=== PATIENT | male | born 1955 | race Caucasian/White ===

== ENCOUNTER 2018-12-28 02:43 | Emergency (ER) | payer BC ==
[2018-12-28] MEDS ORDERED: Ondansetron 4 MG/2 ML SDV IVPUSH ONE (02:51)
[2018-12-28] MEDS ORDERED: HYDROmorphone 1 MG/ML Syringe IVPUSH ONE (02:51)
--- NOTE | 2018-12-28 02:55 | EDM.PDOC ---
ED HPI GENERAL MEDICAL PROBLEM - General Chief Complaint: Gastrointestinal Problem Stated Complaint: [facility] Time Seen by Provider: 12/28/18 02:50 Source of Information: Reports: Patient, EMS History Limitations: Reports: No Limitations - History of Present Illness INITIAL COMMENTS - FREE TEXT/NARRATIVE: 63-year-old male presents to the ED per [facility]. Patient states he was fine yesterday until about 2100 hrs. when he started to develop lower abdominal cramping pain and then diarrhea. States initially dye was brown and watery and then turned to yellow and watery and is now almost clear and watery. He's gone about 22 times almost every 15-20 minutes since onset of the diarrhea. He's been lying on the bathroom floor because he can't straight far. He had a large emesis of bile just before coming into the ED. Vomited only one time. No fever but has had some chills. States he feels lightheaded and weak he can't stand up. Also associated with severe cramping in his lower extremities compatible with dehydration or hypokalemia or both. Patient takes medicine circling around heart attack in 2010. He has one stent placed 08/11/11. He did have an MRI at that time. Patient can't think of anything that he may have eaten out of the ordinary over the last 36 hours that would bear out a food borne illness. He hasn't taken any antibiotics at all last 6 weeks. Associated mild diffuse lower abdominal cramping pain. No blood per rectum or in the emesis. Onset: Sudden Onset Date: 12/27/18 Onset Time: 21:00 Duration: Hour(s): Location: Reports: Abdomen Quality: Reports: Other Severity: Moderate (Mild intermittent lower abdominal cramping pain) Improves with: Reports: None Worsens with: Reports: None Context: Reports: Other. Denies: Activity, Exercise, Lifting, Sick Contact, Trauma Associated Symptoms: Reports: Loss of Appetite, Malaise, Nausea/Vomiting (1 large bilious emesis prior to coming into the ED), Shortness of Breath, Other. Denies: Confusion (Spontaneous onset of nausea vomiting and severe diarrhea.), Chest Pain, Cough, cough w sputum, Diaphoresis, Fever/Chills, Headaches, Rash, Seizure, Syncope Treatments [employer]PER[employer]OR: Reports: IV/IO, Other (see below) (None.) - Related Data Allergies Allergy/AdvReac Type Severity Reaction Status Date / Time No Known Allergies Allergy Verified 12/28/18 02:44 Home Meds: Home Meds Ciprofloxacin HCl [Cipro] 500 mg PO BID #12 tablet 12/28/18 [Rx] Dicyclomine [Bentyl] 20 mg PO Q6H PRN #8 tablet 12/28/18 [Rx] Ondansetron [Zofran] 4 mg BUCCAL Q6H PRN #5 tab 12/28/18 [Rx] Past Medical History Cardiovascular History: Reports: High Cholesterol, [place] (Had a heart attack and had one stent placed at that time. Remains on Plavix and metoprolol and Lipitor) Genitourinary History: Reports: BPH Musculoskeletal History: Reports: Osteoarthritis (Hands and low back and neck at times) Social & Family History - Living Situation & Occupation Occupation: Employed ED ROS GENERAL - Review of Systems Review Of Systems: See Below Constitutional: Reports: Chills, Malaise, Weakness, Fatigue, Decreased Appetite. Denies: Fever HEENT: Reports: Glasses Respiratory: Reports: No Symptoms (Only for reading) Cardiovascular: Denies: Chest Pain, Blood Pressure Problem, Claudication, Dyspnea on Exertion, Edema, Lightheadedness, Orthopnea, Palpitations Endocrine: Reports: Fatigue GI/Abdominal: Reports: Abdominal Pain (Intermittent lower abdominal cramping pain associated with current illness), Diarrhea (Severe diarrhea 22 times a week since 2100 hrs. last night high-volume fluid losses), Nausea, Vomiting ( Vomited once bilious material prior to coming to the ED.). Denies: Distension, Flatus, Hematemesis, Hematochezia, Melena, Other : Reports: Frequency, Other (Nocturia usually 1) Musculoskeletal: Reports: Back Pain, Joint Pain (Knees hips neck at times) Skin: Reports: Other (Vitiligo anterior chest both dorsal hands) Neurological: Reports: Dizziness (Got so dizzy and lightheaded he could not stand up), Numbness, Tingling, Difficulty Walking, Weakness (Unable to walk due to weakness this is why he had to summon the ambulance.). Denies: Confusion, Headache ( after vomiting.), Pre-Existing Deficit (Somewhat in his hands.), Seizure Psychiatric: Reports: No Symptoms Hematologic/Lymphatic: Reports: No Symptoms Immunologic: Reports: No Symptoms ED EXAM, GI/ABD - Physical Exam Exam: See Below Exam Limited By: No Limitations General Appearance: Alert, WD/WN, Mild Distress, Other (Mildly pallid and he can tell that he was diaphoretic and sweating) Eyes: Bilateral: Normal Appearance Throat/Mouth: Other (Tongue is mildly dry and coated) Head: Atraumatic, Normocephalic Neck: Normal Inspection, Supple, Non-Tender, Full Range of Motion. No: Carotid Bruit, Lymphadenopathy (L), Lymphadenopathy (R) Respiratory/Chest: No Respiratory Distress, Lungs Clear, Normal Breath Sounds, Chest Non-Tender Cardiovascular: Normal Peripheral Pulses, Regular Rate, Rhythm, No Edema, No Gallop, No Murmur, No Rub GI/Abdominal Exam: Soft, No Organomegaly, No Distention, Tender (I'll tenderness of the abdominal wall musculature primarily in the epigastrium.), Abnormal Bowel Sounds. No: Guarding, Rigid, Rebound (Male) Exam: No Hernia Back Exam: Normal Inspection, Full Range of Motion. No: CVA Tenderness (L), CVA Tenderness (R) Extremities: Normal Inspection, Normal Range of Motion, Non-Tender, No Pedal Edema Neurological: Alert, Oriented, CN II-XII Intact, Normal Cognition Psychiatric: Normal Affect, Normal Mood Skin Exam: Warm, Dry, Intact, No Rash, Pallor (Slight pallor.) Course - Vital Signs Last Recorded V/S: Last Vital Signs Temp 35.9 C 12/28/18 02:44 Pulse 72 12/28/18 02:44 Resp 15 12/28/18 02:44 BP 146/95 H 12/28/18 02:44 Pulse Ox 98 12/28/18 02:44 - Orders/Labs/Meds Labs: Laboratory Tests 12/28/18 12/28/18 12/28/18 Range/Units 03:00 03:06 03:06 WBC 7.43 (4.23-9.07) K/mm3 RBC 4.97 (4.63-6.08) M/mm3 Hgb 14.5 (13.7-17.5) gm/L Hct 43.2 (40.1-51.0) % MCV 86.9 (79.0-92.2) fl MCH 29.2 (25.7-32.2) pg MCHC 33.6 (32.2-35.5) g/dl RDW Std Deviation 41.5 (35.1-43.9) fL Plt Count 217 (163-337) K/mm3 MPV 9.6 (9.4-12.3) fl Neutrophils % (Manual) 80 H (40-60) % Band Neutrophils % 0 (0-10) % Lymphocytes % (Manual) 13 L (20-40) % Atypical Lymphs % 0 % Monocytes % (Manual) 3 (2-10) % Eosinophils % (Manual) 4 (0.8-7.0) % Basophils % (Manual) 0 L (0.2-1.2) Platelet Estimate Adequate Plt Morphology Comment Normal RBC Morph Comment Normal Sodium 138 (136-145) mEq/L Potassium 3.5 (3.5-5.1) mEq/L Chloride 104 (98-107) mEq/L Carbon Dioxide 22 (21-32) mEq/L Anion Gap 15.5 H (5-15) BUN 12 (7-18) mg/dL Creatinine 1.1 (0.7-1.3) mg/dL Est Cr Clr Drug Dosing 70.05 mL/min Estimated GFR (MDRD) > 60 (>60) mL/min BUN/Creatinine Ratio 10.9 L (14-18) Glucose 116 H (80-115) mg/dL Calcium 8.6 (8.5-10.1) mg/dL Total Bilirubin 1.0 (0.2-1.0) mg/dL AST 19 (15-37) U/L ALT 38 (16-63) U/L Alkaline Phosphatase 98 (46-116) U/L C-Reactive Protein 0.8 (<1.0) mg/dL Total Protein 6.9 (6.4-8.2) g/dl Albumin 3.8 (3.4-5.0) g/dl Globulin 3.1 gm/dL Albumin/Globulin Ratio 1.2 (1-2) C.difficile [id number] Presumptive negative C. difficile Tox (PCR) Negative Meds: Medications Discontinued Medications Generic Name Dose Route Start Last Admin Trade Name Freq PRN Reason Stop Dose Admin Hydromorphone HCl 0.5 mg 12/28/18 02:51 12/28/18 03:01 Dilaudid IVPUSH 12/28/18 02:52 0.5 mg ONETIME ONE Administration Dextrose/Lactated Ringer's 1,000 mls @ 999 mls/hr 12/28/18 03:00 12/28/18 02: 58 Dextrose 5%-Lactated Ringers IV 999 mls/hr ASDIRECTED RAUL Administration Dextrose/Lactated Ringer's 1,000 mls @ 500 mls/hr 12/28/18 04:00 12/28/18 05: 05 Dextrose 5%-Lactated Ringers IV 500 mls/hr ASDIRECTED RAUL Administration Levofloxacin/Dextrose 500 mg/ 100 mls @ 100 mls/hr 12/28/18 03:53 12/28/18 04 :05 Premix IV 12/28/18 04:52 100 mls/hr ONETIME ONE Administration Ondansetron HCl 4 mg 12/28/18 02:51 12/28/18 02:59 Zofran IVPUSH 12/28/18 02:52 4 mg ONETIME ONE Administration - Radiology Interpretation Free Text/Narrative:: 63-year-old male presents to the ED for evaluation of generalized weakness that is occurred since he developed sudden onset is that of severe watery diarrhea per Rosemary about 2100 hrs. last night. He states he's got about every 15-20 minutes and is counted more than 22 bowel movements since onset of illness. He had emesis of large amount of bilious material just prior to coming to the ED 1. No blood in the stool. He states is almost pure water suggesting a strong secretory diarrhea. There is no history of significant exposure to bad food. He did eat out yesterday with a daphnie melt after [employer]. He opened a can of tuna last night and admitted to decide which makes with salad dressing that was in the fridge. The history is suggestive of a food borne toxin or C. difficile. He has not taken any antibiotics for greater than 6 weeks. States she's get cramps so bad in his lower extremities that he could not walk or stand. Severity lightheaded and dizzy. Paramedics have started an IV of normal saline 500 mils at open. No medications have been administered by paramedics. Plan Zofran 4 mg IV. IV will be D5 Ringer's lactate at open. Routine labs to be collected and CRP and a stool for WBC and culture. Stool also be collected for C. difficile. - Re-Assessments/Exams Free Text/Narrative Re-Assessment/Exam: 12/28/18 03:47 Labs reveal a normal white count at 7.43. There is a left shift of 80% neutrophils and no band cells reported. Hemoglobin is 14.5 with hematocrit of 43.2. Platelet count 217,000. Sodium 138 with potassium of 3.5. Chloride 104 with a bicarbonate of 22. And a gap is slightly elevated at 15.5. Creatinine is 1.1. GFR is greater than 60. Glucose is 116. Calcium is 8.6. Total bilirubin is 1.0. AST is 19 with an ALT of 38. Alkaline phosphatase 98. C- reactive protein is 0.8. Stool specimen reports a few white blood cells noted in the stool. 12/28/18 03:54 patient is feeling better. No further cramps he's only had the one bowel movement since being in the department. C. difficile toxin has not yet been identified. She reports she's been having some intermittent loose diarrhea for the last several days which she admitted to tell me on initial interrogation. He states he did take an Imodium yesterday morning before going to work. Had no bowel movements until 2100 hrs. last night. 12/28/18 04:38 stool tested for C. difficile is presumptively negative. 12/28/18 06:00 Patient is feeling better . Will be treated conservatively with fluids and sent fome with Zofran 4mg s/l Q4-6hrs prn for nausea or vomiting relief. Clear fluid diet. Bentyl 20mg po Q6 Hr prn for relief of abdominal pain/ cramps. Cipro 500mg po BID for 6days due to suspect food borne illness. Follow up if not markedly improved in 36-48hrs time. Departure - Departure Time of Disposition: 06:00 Disposition: Home, Self-Care 01 Condition: Fair Clinical Impression: Gastroenteritis due to food toxin - Discharge Information *PRESCRIPTION DRUG MONITORING PROGRAM REVIEWED*: Not Applicable *COPY OF PRESCRIPTION DRUG MONITORING REPORT IN PATIENT ABBI: Not Applicable Prescriptions: Ciprofloxacin HCl [Cipro] 500 mg PO BID #12 tablet Dicyclomine [Bentyl] 20 mg PO Q6H PRN #8 tablet PRN Reason: Abdominal cramps/diarrhea Ondansetron [Zofran] 4 mg BUCCAL Q6H PRN #5 tab PRN Reason: nausea or vomiting Instructions: Viral Gastroenteritis, Adult, [id number] Referrals: PCP,None [Primary Care Provider] - Forms: ED Department Discharge Additional Instructions: Evaluation the emergency room this morning due to development of severe diarrhea and vomiting 1 starting last evening about 2100 hrs. Severe diarrhea ended up causing significant dehydration with associated muscle cramping in your lower extremities ,lightheadedness and difficulties trying to walk. The severity of the diarrhea with 22 bowel movements over a short period of time suggest strongly that there is a bacterial toxin from recently eaten food usually within 24 hours of onset of illness to cause such significant diarrhea. The stools tested in the ED revealed a few white blood cells suggesting bacterial illness. It was negative for Clostridium difficile and is in that causes severe diarrhea. Therefore appears that diarrhea is foodborne in origin likely a toxin in recently eaten food such as possibly the main days used to make her tuna salad sandwich last night. You were treated in the ED with a liter and a half of IV fluids and initial dose of IV antibiotic Levaquin 500 mg. Treatment at home is clear fluids water is fine. Suggest Powerade or Gatorade 5-6 ounces per hour as this is very similar to IV fluid replacement. They have other juices as well if so desired but no apple juice or grape juice until stools are formed backup. No dairy products again until the stools are formed backup. When hungry try soda crackers first. If tolerated may advance to jam on bread or toast. After this may advance to broth soup or chicken noodle/ turkey rice soup etc. May then advance diet as tolerated. Antibiotic Cipro is to be taken twice daily for the next 6 days to clear up bacterial-induced diarrhea. First tablet to be taken around noon hour today second one before bed. May use Zofran under the tongue every 4-6 hours if needed for relief of nausea or vomiting. Bentyl 20 mg by mouth every 6 hours if needed for relief of diarrhea or abdominal cramps. Expect marked improvement over the next 48 hours. Still having diarrhea after 48 hours you should be seen by her primary care physician or return to the ED.
[2018-12-28] MEDS ORDERED: Dextrose 5%-Lactated Ringers 1,000 ML IV SCH ×2 (03:00→04:00)
[2018-12-28] MEDS ORDERED: Levofloxacin/Dextrose 5%-Water 500 MG in Premix Bag 1 BAG IV ONE (03:53)
== END 2018-12-28 06:30 | disposition home or self-care (01) ==
LOC: JD.ED 02:43
DX: A05.9 Bacterial foodborne intoxication, unspecified (principal); I25.2 Old myocardial infarction
CPT/HCPCS: 36415; 80053; 85007; 85027; 86140; 87046; 87493; 89055; 96361; 96365; 96375; 99284; J1170; J1956; J2405; J7042

== ENCOUNTER 2019-11-25 21:26 | Emergency (ER) | payer BC, MEDICARE ==
[2019-11-25] MEDS ORDERED: HYDROmorphone 1 MG/ML Syringe IVPUSH ONE (22:51)
[2019-11-25] MEDS ORDERED: Ondansetron 4 MG/2 ML SDV IVPUSH ONE (22:51)
--- NOTE | 2019-11-25 22:57 | EDM.PDOC ---
ED HPI GENERAL MEDICAL PROBLEM - General Chief Complaint: Back Pain or Injury Stated Complaint: FALL LOWER BACK PAIN Time Seen by Provider: 11/25/19 22:33 Source of Information: Reports: Patient, Family (, son) History Limitations: Reports: No Limitations - History of Present Illness INITIAL COMMENTS - FREE TEXT/NARRATIVE: Mr. 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 He states that he was helped into his house where he essentially laid on the couch for the remainder of the afternoon. He states that he has pain in his lower left flank area, even if he remains still, although it is much worse if he walks. He states that he is otherwise uninjured. He iced his back and took 800 mg of ibuprofen around 18:00, but his pain has persisted, therefore he came to the ED for evaluation. The patient denies recent fever, chills, cough, chest pain, palpitations, nausea , vomiting, constipation, diarrhea, abdominal pain, urinary symptoms, recent weight gain or weight loss, recent bloody bowel movements or black bowel movements, recent joint aches, headaches, or rashes. The patient does not have a PCP. His Cardiology and level is Christina Simon NP, at [facility]. He received an influenza vaccine this season. 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: Other (see below) Other Treatments PACKAGING DESIGN ENGINEER: advil Left Lower Back Pain Score (Numeric/FACES): 9 - Related Data Allergies Allergy/AdvReac Type Severity Reaction Status Date / Time No Known Allergies Allergy Verified 12/28/18 02:44 Home Meds: Home Meds Aspirin [Halfprin] 81 mg PO DAILY 11/25/19 [History] Clopidogrel [Plavix] 75 mg PO DAILY 11/25/19 [History] Metoprolol Succinate 25 mg PO DAILY 11/25/19 [History] Ramipril [Altace] 2.5 mg PO DAILY 11/25/19 [History] atorvaSTATin Calcium [Lipitor] 40 mg PO DAILY 11/25/19 [History] Acetaminophen/oxyCODONE [Percocet 325-5 MG] 1 - 2 tab PO Q6H PRN #30 tab [Rx] Ondansetron [Zofran ODT] 1 tab PO Q8H PRN #15 tab.dis 11/26/19 [Rx] Past Medical History Cardiovascular History: Reports: CAD, High Cholesterol, GA (04/14/2011) Genitourinary History: Reports: BPH (untreated) Musculoskeletal History: Reports: Osteoarthritis Hematologic History: Reports: Blood Transfusion(s) Dermatologic History: Reports: Other (See Below) (Vitiligo) - Past Surgical History HEENT Surgical History: Reports: Tonsillectomy Cardiovascular Surgical History: Reports: Coronary Artery Stent (x 1, 04/14/2011) GI Surgical History: Reports: Colonoscopy (x 1) Social & Family History - Tobacco Use Smoking Status *Q: Never Smoker - Caffeine Use Caffeine Use: Reports: Soda - Alcohol Use Alcohol Use History: Yes Alcohol Use Frequency: Socially - Recreational Drug Use Recreational Drug Use: No - Living Situation & Occupation Living situation: Reports: , with Spouse Occupation: Employed ([employer]) ED ROS GENERAL - Review of Systems Review Of Systems: Comprehensive ROS is negative, except as noted in HPI. ED EXAM,LOWER BACK PAIN/INJURY - Physical Exam Exam: See Below Exam Limited By: No Limitations General Appearance: Alert, WD/WN, No Apparent Distress (appears uncomfortable, particularly when he moves) Eye Exam: Bilateral Eye: EOMI, Normal Inspection Ears: Normal External Exam, Hearing Grossly Normal Nose: Normal Inspection Throat/Mouth: Normal Inspection, Normal Lips, Normal Voice, No Airway Compromise Head: Atraumatic, Normocephalic Neck: Normal Inspection, Full Range of Motion Respiratory/Chest: No Respiratory Distress, Lungs Clear, Normal Breath Sounds, No Accessory Muscle Use Cardiovascular: Normal Peripheral Pulses, Regular Rate, Rhythm, No Edema, No Gallop, No JVD, No Murmur, No Rub GI/Abdominal: Normal Bowel Sounds, Soft, Non-Tender, No Organomegaly, No Distention, No Abnormal Bruit, No Mass (Male) Exam: Deferred Rectal (Males) Exam: Deferred Back Exam: Normal Inspection (No visible abnormality, including to the lower left flank - the area of concern - such as swelling, erythema, ecchymosis, or abrasion, however, there is reproducible tenderness to palpation of this area), Full Range of Motion. No: CVA Tenderness (L), CVA Tenderness (R), Vertebral Tenderness Extremities: Normal Inspection, Normal Range of Motion, No Pedal Edema, Normal Capillary Refill Neurological: Alert, Normal Dorsiflexion, Normal Plantar Flexion, No Motor/ Sensory Deficits, Oriented x 3 Psychiatric: Normal Affect Skin Exam: Warm, Dry, Intact, Normal Color, No Rash Course - Vital Signs Last Recorded V/S: Last Vital Signs Temp 36.5 C 11/25/19 22:00 Pulse 67 11/25/19 22:00 Resp 20 11/25/19 22:00 BP 118/77 11/25/19 22:00 Pulse Ox 96 11/25/19 22:00 - Orders/Labs/Meds Labs: Laboratory Tests 11/25/19 11/25/19 Range/Units 23:10 23:10 WBC 7.33 (4.23-9.07) K/mm3 RBC 4.92 (4.63-6.08) M/mm3 Hgb 14.6 (13.7-17.5) gm/dl Hct 43.1 (40.1-51.0) % MCV 87.6 (79.0-92.2) fl MCH 29.7 (25.7-32.2) pg MCHC 33.9 (32.2-35.5) g/dl RDW Std Deviation 42.2 (35.1-43.9) fL Plt Count 246 (163-337) K/mm3 MPV 9.3 L (9.4-12.3) fl Neut % (Auto) 69.0 H (34.0-67.9) % Lymph % (Auto) 17.2 L (21.8-53.1) % Mcdonald % (Auto) 12.0 (5.3-12.2) % Eos % (Auto) 1.4 (0.8-7.0) Baso % (Auto) 0.3 (0.1-1.2) % Neut # (Auto) 5.06 (1.78-5.38) K/mm3 Lymph # (Auto) 1.26 L (1.32-3.57) K/mm3 Mcdonald # (Auto) 0.88 H (0.30-0.82) K/mm3 Eos # (Auto) 0.10 (0.04-0.54) K/mm3 Baso # (Auto) 0.02 (0.01-0.08) K/mm3 Sodium 138 (136-145) mEq/L Potassium 4.2 (3.5-5.1) mEq/L Chloride 103 (98-107) mEq/L Carbon Dioxide 23 (21-32) mEq/L Anion Gap 16.2 H (5-15) BUN 17 (7-18) mg/dL Creatinine 1.1 (0.7-1.3) mg/dL Est Cr Clr Drug Dosing 70.05 mL/min Estimated GFR (MDRD) > 60 (>60) mL/min BUN/Creatinine Ratio 15.5 (14-18) Glucose 107 (80-115) mg/dL Calcium 8.9 (8.5-10.1) mg/dL Total Bilirubin 1.5 H (0.2-1.0) mg/dL AST 24 (15-37) U/L ALT 45 (16-63) U/L Alkaline Phosphatase 98 (46-116) U/L Total Protein 7.1 (6.4-8.2) g/dl Albumin 4.1 (3.4-5.0) g/dl Globulin 3.0 gm/dL Albumin/Globulin Ratio 1.4 (1-2) Meds: Medications Discontinued Medications Generic Name Dose Route Start Last Admin Trade Name Freq PRN Reason Stop Dose Admin Hydromorphone HCl 1 mg 11/25/19 22:51 11/25/19 23:11 Dilaudid IVPUSH 11/25/19 22:52 1 mg ONETIME ONE Administration Sodium Chloride 1,000 mls @ 150 mls/hr 11/25/19 23:00 11/25/19 23:11 Normal Saline IV 150 mls/hr ASDIRECTED RAUL Administration Iopamidol 100 ml 11/25/19 23:15 11/25/19 23:23 Isovue-300 (61%) IVPUSH 11/25/19 23:16 100 ml ONETIME ONE Administration Ondansetron HCl 4 mg 11/25/19 22:51 11/25/19 23:11 Zofran IVPUSH 11/25/19 22:52 4 mg ONETIME ONE Administration Sodium Chloride 10 ml 11/25/19 23:15 11/25/19 23:23 Saline Flush FLUSH 10 ml ONETIME PRN Administration KEEP VEIN OPEN - Re-Assessments/Exams Free Text/Narrative Re-Assessment/Exam: 11/25/19 22:52 As above, the patient reports lower left flank pain after falling about 4 feet off of a 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 There is no visible injury, such as an ecchymosis, but he has reproducible tenderness to palpation in the area that he has pain. Because the patient is on both aspirin and Plavix, I think it is important that we make sure that he has not suffered any significant injury not visible to the naked eye, therefore I recommended a CT scan of his abdomen and pelvis with IV contrast. The patient agreed. I also ordered a CBC and CMP. In the meantime, the patient will be given IV Dilaudid, IV Zofran, and IV fluid. 11/26/19 00:54 CT of the abdomen and pelvis with IV contrast as read by Luc as: 1. Fractures of the left 11th and 12th ribs and transverse processes of L1-L3. 2. Soft tissue swelling of the left flank. 3. No evidence of solid organ injury. The body of the report reads "Nondisplaced acute fractures of the posterior left 11th and 12th ribs and fractures of the left transverse processes of L1, L2 and L3. There is a compression deformity with anterior wedging of T12 which appears chronic." 11/26/19 01:03 Test results discussed with the patient and his son (his is no longer present). The patient does not require hospitalization. I will discharge him home with prescriptions for Percocet and Zofran. In addition, I would like him to take [id number] ibuprofen around the clock, and stay well-hydrated. Departure - Departure Time of Disposition: 01:06 Disposition: Home, Self-Care 01 Condition: Good Clinical Impression: Fall as cause of accidental injury on farm as place of occurrence, Multiple fractures of ribs, left side, initial encounter for closed fracture, Multiple transverse process fractures - Discharge Information *PRESCRIPTION DRUG MONITORING PROGRAM REVIEWED*: Not Applicable *COPY OF PRESCRIPTION DRUG MONITORING REPORT IN PATIENT ABBI: Not Applicable Prescriptions: Acetaminophen/oxyCODONE [Percocet 325-5 MG] 1 - 2 tab PO Q6H PRN #30 tab PRN Reason: Pain (Severe 7-10) Ondansetron [Zofran ODT] 1 tab PO Q8H PRN #15 tab.dis PRN Reason: Nausea/Vomiting Instructions: Transverse Process Fracture, Rib Fracture, [id number] Referrals: PCP,None [Primary Care Provider] - Christina Simon, [employer] [Ordering Only Provider] - Forms: ED Department Discharge Additional Instructions: You were seen in the emergency room for lower left back pain after falling off of a data center technician. Work-up in the ER included blood work and a CT scan of your abdomen and pelvis with IV contrast. Your blood work was unremarkable, but the CT scan of your abdomen and pelvis found that you have fractures in your left 11th and 12th ribs, as well as fractures of your left L1, L2, and L3 transverse processes of your spine. We recommend that you take [id number] ibuprofen, 3 tablets (600 mg) every 8 hours, with food, [id number], as needed for discomfort. You may also take 1 to 2 tablets of the prescription opioid Percocet up to every 6 hours as needed for pain not relieved by ibuprofen. If you take Percocet, do not drive or operate heavy machinery for 12 hours after taking. Percocet may cause constipation, so consider taking a stool softener. Since Percocet may also cause nausea and vomiting, you may dissolve 1 tablet of the anti-nausea medicine Zofran on your tongue up to every 8 hours, as needed for nausea/vomiting. You may be as active as tolerated by pain. Since you received IV contrast today, we recommend that you stay well-hydrated for a good week. If any other problems, please do not hesitate to return to the ER. Sepsis Event Note - Evaluation Sepsis Screening Result: No Definite Risk - Focused Exam Date Exam was Performed: 11/27/19 Time Exam was Performed: 08:10
[2019-11-25] MEDS ORDERED: Sodium Chloride 0.9% 1,000 ML IV SCH (23:00)
[2019-11-25] MEDS ORDERED: Sodium Chloride 0.9% 10 ML Syringe FLUSH PRN (23:15)
[2019-11-25] MEDS ORDERED: Iopamidol 612 MG/ML 100 ML Bottle IVPUSH ONE (23:15)
--- NOTE | 2019-11-26 17:09 | CT ---
CT abdomen and pelvis Technique: Multiple axial sections were obtained from above the dome of the diaphragm inferiorly through the pubic symphysis. Intravenous contrast was utilized. No oral contrast has been given. Findings: Visualized lung bases show nothing acute. Liver contains no focal abnormality. Spleen appears within normal limits. Adrenal glands show no nodule. Pancreas is within normal limits. Kidneys show symmetric contrast enhancement without hydronephrosis or mass. Gallbladder contains no calcified gallstones. Pancreas is within normal limits. Aorta shows no aneurysm. No retroperitoneal adenopathy or mesenteric abnormalities are seen. No pelvic mass or adenopathy is identified. Mild 3 the mid thigh thin while the 93 sports. Appendix not seen with certainty. Delayed images show contrast within the distal ureters and within the bladder. Bone window settings were reviewed compression deformity with anterior wedging is noted of T12 which is likely old. Scattered degenerative change throughout the spine is seen. Minimally displaced fractures are seen within the transverse process of L1-L3 on the left side. Slightly displaced fracture is noted within the posterior left 12th rib and nondisplaced fracture is seen within the posterior left 11th rib. Subcutaneous soft tissue swelling is seen within the inferior left flank. Impression: 1. Transverse process fractures on the left side at L1-L3. 2. Rib fractures posteriorly within T11 and T12. This is also noted on the left side. 3. Soft tissue swelling within the subcutaneous fat of the left flank. 4. No intra-abdominal or intrapelvic abnormality is seen. Diagnostic code #3 This report was dictated in [place] Standard Time I agree with preliminary report from [facility], finalized on 11/26/19, 1:41 AM Central Time
== END 2019-11-26 01:30 | disposition home or self-care (01) ==
LOC: JD.ED 21:26
DX: S22.42XA Multiple fractures of ribs, left side, initial encounter for closed fracture (principal); S32.018A Other fracture of first lumbar vertebra, initial encounter for closed fracture; S32.028A Other fracture of second lumbar vertebra, initial encounter for closed fracture; S32.038A Other fracture of third lumbar vertebra, initial encounter for closed fracture; I25.10 Atherosclerotic heart disease of native coronary artery without angina pectoris; I25.2 Old myocardial infarction; E78.00 Pure hypercholesterolemia, unspecified; Z95.5 Presence of coronary angioplasty implant and graft; Z79.82 Long term (current) use of aspirin; Z79.02 Long term (current) use of antithrombotics/antiplatelets; Z79.899 Other long term (current) drug therapy; W17.89XA Other fall from one level to another, initial encounter; Y93.89 Activity, other specified; Y92.79 Other farm location as the place of occurrence of the external cause
CPT/HCPCS: 36415; 74177; 80053; 85025; 96361; 96374; 96375; 99284; J1170; J2405; J7030; Q9967

== ENCOUNTER 2020-08-29 16:27 | Emergency (ER) | payer MEDICARE, OTHER ==
[2020-08-29] MEDS ORDERED: Ondansetron 4 MG/2 ML SDV IVPUSH ONE (16:39)
--- NOTE | 2020-08-29 16:41 | EDM.PDOC ---
ED HPI GENERAL MEDICAL PROBLEM - General Chief Complaint: Trauma Stated Complaint: [facility] Time Seen by Provider: 08/29/20 16:33 Source of Information: Reports: Patient History Limitations: Reports: No Limitations - History of Present Illness INITIAL COMMENTS - FREE TEXT/NARRATIVE: 64-year-old male presents to the ED per [facility] after falling in the shop at work. He states he was up on a skid steer and lost his balance and fell hard to the concrete floor below him. Estimated fall 1960 8 feet landing hard on the back of his head. He does not believe he lost consciousness. He reports that he does have a headache and he did vomit in the ambulance in route to the hospital. Paramedics did place a c-collar on him but it was removed at the time he was started vomiting in the ambulance. He denies any cervical neck pain. Has a heck of a headache. Attempting to sit him up made him woozy and nearly pass out. Of note patient is on Plavix due to coronary artery disease and stents. Complains of pain between his shoulder blades in his mid back. Has some pain on posterior aspect of his right thigh which appears to be soft tissue injury. Onset: Today, Sudden Onset Date: 08/29/20 Onset Time: 15:50 Duration: Minutes: Location: Reports: Head, Neck, Back (Thoracic back) Quality: Reports: Ache Severity: Moderate Improves with: Reports: Rest Worsens with: Reports: Movement (Movement makes him very nauseated and lightheaded with near syncope when he sat up from) Context: Reports: Trauma (Fall in the workplace. He was states he was up on his skid steer and turned lost his balance and footing and fell backwards hitting his head on a concrete floor.). Denies: Activity, Exercise, Lifting, Sick Contact Associated Symptoms: Reports: Loss of Appetite, Malaise, Nausea/Vomiting, Seizure. Denies: Confusion, Chest Pain, Cough, cough w sputum, Diaphoresis, Fever/Chills, Headaches, Rash, Shortness of Breath, Syncope Treatments VP MEDICAL: Reports: Other (see below) (None.) Back Pain Score (Numeric/FACES): 6 - Related Data Allergies Allergy/AdvReac Type Severity Reaction Status Date / Time No Known Allergies Allergy Verified 08/29/20 16:38 Home Meds: Home Meds Aspirin [Halfprin] 81 mg PO DAILY 11/25/19 [History] Clopidogrel [Plavix] 75 mg PO DAILY 11/25/19 [History] Metoprolol Succinate 25 mg PO DAILY 11/25/19 [History] atorvaSTATin Calcium [Lipitor] 40 mg PO DAILY 11/25/19 [History] ramipriL [Altace] 2.5 mg PO DAILY 11/25/19 [History] Metoclopramide HCl [Reglan] 10 mg PO Q8H PRN #12 tablet 08/29/20 [Rx] oxyCODONE HCl/Acetaminophen [Percocet 5-325 mg Tablet] 1 - 2 each PO Q4H PRN #24 tablet 08/29/20 [Rx] Past Medical History HEENT History: Reports: Other (See Below) (History of recurrent problems with vertigo.) Cardiovascular History: Reports: CAD, High Cholesterol, [place] (04/14/2011), Stents Genitourinary History: Reports: BPH (untreated) Musculoskeletal History: Reports: Osteoarthritis Neurological History: Reports: Vertigo Hematologic History: Reports: Blood Transfusion(s) Dermatologic History: Reports: Other (See Below) (Vitiligo) - Past Surgical History HEENT Surgical History: Reports: Tonsillectomy Cardiovascular Surgical History: Reports: Coronary Artery Stent (x 1, 04/14/2011) GI Surgical History: Reports: Colonoscopy (x 1) Social & Family History - Caffeine Use Caffeine Use: Reports: Soda - Living Situation & Occupation Living situation: Reports: , with Spouse Occupation: Employed ([employer]) Review of Systems - Review of Systems Review Of Systems: See Below Constitutional: Reports: No Symptoms Eyes: Reports: Glasses Ears: Reports: Other (Mildly hard of hearing.) Mouth/Throat: Reports: No Symptoms, Other (His upper teeth he has no lower teeth. No injury to the tongue) Respiratory: Reports: No Symptoms Cardiovascular: Reports: Lightheadedness. Denies: Chest Pain, Edema, Irregular Heart Rate, Other GI/Abdominal: Reports: Nausea, Vomiting (Nausea and vomiting in the ambulance in route to [facility].) Genitourinary: Reports: Other (Richar frequency with nocturia x2-3.) Musculoskeletal: Reports: Neck Pain, Back Pain, Joint Pain Skin: Reports: Bruising (He has multiple bruises abdominal wall right anterior leg. He states this is normal from work related trauma) Neurological: Reports: Dizziness, Headache, Weakness. Denies: Confusion ( since has been on Plavix.), Numbness, Syncope, Tingling, Trouble Speaking, Difficulty Walking, Change in Speech Psychiatric: Reports: No Symptoms ED EXAM, GENERAL - Physical Exam Exam: See Below Exam Limited By: No Limitations General Appearance: Alert, WD/WN, Mild Distress, Other (Temperature is 36.1. Pulse is 69 is sinus respiratory is 18 O2 sats 100% room air BP 130/90.) Eye Exam: Bilateral Eye: Normal Inspection (No blepharal pallor or scleral icterus.), PERRL Ears: Normal TMs (No blood behind the tympanic membranes appreciated) Nose: Other (No mid facial injuries.) Throat/Mouth: Other (Has upper teeth only. Multiple bridges. No lower teeth present.) Head: Other (Patient has an extremely large hematoma to the left occipital scalp measuring approximately 14 cm x 12 cm which is exquisitely tender. There is some bleeding from the wound from superficial abrasions but no open deep lacerations. He has no tongue injuries.) Neck: Limited Range of Motion, Tender Lateral (Tender both lateral aspect of his cervical spine. Could not identify significant midline tenderness. ). No: Full Range of Motion, Carotid Bruit, Lymphadenopathy (L) Respiratory/Chest: No Respiratory Distress, Lungs Clear, Normal Breath Sounds, No Accessory Muscle Use, Decreased Breath Sounds (Sounds are mildly diminished to the posterior lung dove by about 20%.) Cardiovascular: Regular Rate, Rhythm, No Edema, No Gallop, No Murmur, No Rub, Other (Xander rhythm) Peripheral Pulses: 2+: Posterior Tibial (L), Posterior Tibial (R), Dorsalis Pedis (L), Dorsalis Pedis (R) GI/Abdominal: Normal Bowel Sounds, Soft, Non-Tender, No Organomegaly, No Abnormal Bruit, Pelvis Stable, Other (Small round ecchymoses particularly left lower abdominal wall he states they occur from pushing on things with his abdomen at work.). No: Guarding, Rigid, Rebound, Tender Back Exam: Other (Significant tenderness on compression of his lumbar spine. He does have tenderness mid thoracic spine between the shoulder blades and it is painful with deep breathing. Therefore CT of his thoracic spine will also be completed.) Extremities: Other (He has some tenderness posterior aspect of his right thigh on exam he has diminished internal/external rotation of the right hip. Evidence of osteoarthritic changes both knees. He has fully fairly full range of motion of the left hip on exam.) Neurological: Alert, Oriented ( Dependent edema.), CN II-XII Intact, Normal Cognition Psychiatric: Normal Affect, Normal Mood Skin Exam: Warm, Dry, Intact, Normal Color, Pallor #1 Interpretation EKG Date: 08/29/20 Time: 16:34 Rhythm: NSR Rate (Beats/Min): 66 (Occasional PACs) [place]: Normal P-Wave: Present QRS: Other (RSR prime with a with a Q wave in V1 likely due to right bundle branch block give some consideration to old posterior wall infarct.) ST-T: Other (Wandering baseline in the limb leads limits ability to interpret them.) QT: Normal EKG Interpretation Comments: Abnormal ECG Course - Vital Signs Last Recorded V/S: Last Vital Signs Temp 36.7 C 08/29/20 19:06 Pulse 76 08/29/20 19:06 Resp 16 08/29/20 19:06 BP 141/67 H 08/29/20 19:06 Pulse Ox 100 08/29/20 19:06 - Orders/Labs/Meds Orders: Active Orders 24 hr Category Date Time Status EKG Documentation Completion [RC] STAT Care 08/29/20 16:40 Active Oxygen Therapy [RC] ASDIRECTED Care 08/29/20 18:14 Active Cervical Spine wo Cont [CT] Stat Exams 08/29/20 16:36 Taken Head wo Cont [CT] Stat Exams 08/29/20 16:34 Taken Thoracic Spine wo Cont [CT] Stat Exams 08/29/20 16:38 Taken Sodium Chloride 0.9% [Normal Saline] 1,000 ml Med 08/29/20 16:45 Active IV ASDIRECTED Medication Orders Sodium Chloride (Normal Saline) 1,000 mls @ 100 mls/hr IV ASDIRECTED RAUL Last Admin: 08/29/20 17:21 Dose: 100 mls/hr Documented by: [facility] Labs: Laboratory Tests 08/29/20 08/29/20 08/29/20 Range/Units 16:35 16:35 16:35 WBC 9.93 H (4.23-9.07) K/mm3 RBC 4.86 (4.63-6.08) M/mm3 Hgb 14.6 (13.7-17.5) gm/dl Hct 42.0 (40.1-51.0) % MCV 86.4 (79.0-92.2) fl MCH 30.0 (25.7-32.2) pg MCHC 34.8 (32.2-35.5) g/dl RDW Std Deviation 40.6 (35.1-43.9) fL Plt Count 245 (163-337) K/mm3 MPV 9.5 (9.4-12.3) fl Neut % (Auto) 82.4 H (34.0-67.9) % Lymph % (Auto) 9.2 L (21.8-53.1) % [place] % (Auto) 7.3 (5.3-12.2) % Eos % (Auto) 0.8 (0.8-7.0) Baso % (Auto) 0.3 (0.1-1.2) % Neut # (Auto) 8.19 H (1.78-5.38) K/mm3 Lymph # (Auto) 0.91 L (1.32-3.57) K/mm3 [place] # (Auto) 0.72 (0.30-0.82) K/mm3 Eos # (Auto) 0.08 (0.04-0.54) K/mm3 Baso # (Auto) 0.03 (0.01-0.08) K/mm3 Manual Slide Review Abnormal smear PT 10.9 (9.7-12.0) SECONDS INR 1.02 APTT 25.0 (21.7-31.4) SECONDS Sodium 140 (136-145) mEq/L Potassium 3.6 (3.5-5.1) mEq/L Chloride 103 (98-107) mEq/L Carbon Dioxide 26 (21-32) mEq/L Anion Gap 14.6 (5-15) BUN 14 (7-18) mg/dL Creatinine 1.1 (0.7-1.3) mg/dL Est Cr Clr Drug Dosing 69.13 mL/min Estimated GFR (MDRD) > 60 (>60) mL/min BUN/Creatinine Ratio 12.7 L (14-18) Glucose 133 H (80-115) mg/dL Calcium 9.1 (8.5-10.1) mg/dL Magnesium 1.7 L (1.8-2.4) mg/dl Total Bilirubin 1.4 H (0.2-1.0) mg/dL AST 44 H (15-37) U/L ALT 84 H (16-63) U/L Alkaline Phosphatase 106 (46-116) U/L C-Reactive Protein 0.7 (<1.0) mg/dL NT-Pro-B Natriuret Pep (0-125) pg/mL Total Protein 7.1 (6.4-8.2) g/dl Albumin 3.9 (3.4-5.0) g/dl Globulin 3.2 gm/dL Albumin/Globulin Ratio 1.2 (1-2) Urine Color (Yellow) Urine Appearance (Clear) Urine pH (5.0-8.0) Ur Specific [place] (1.005-1.030) Urine Protein (Negative) Urine Glucose (UA) (Negative) Urine Ketones (Negative) Urine Occult Blood (Negative) Urine Nitrite (Negative) Urine Bilirubin (Negative) Urine Urobilinogen (0.2-1.0) Ur Leukocyte Esterase (Negative) Urine RBC (0-5) /hpf Urine WBC (0-5) /hpf Ur Squamous Epith Cells (0-5) /hpf Urine Bacteria (FEW) /hpf Urine Mucus (FEW) /hpf 08/29/20 08/29/20 Range/Units 16:35 18:00 WBC (4.23-9.07) K/mm3 RBC (4.63-6.08) M/mm3 Hgb (13.7-17.5) gm/dl Hct (40.1-51.0) % MCV (79.0-92.2) fl MCH (25.7-32.2) pg MCHC (32.2-35.5) g/dl RDW Std Deviation (35.1-43.9) fL Plt Count (163-337) K/mm3 MPV (9.4-12.3) fl Neut % (Auto) (34.0-67.9) % Lymph % (Auto) (21.8-53.1) % Chilton % (Auto) (5.3-12.2) % Eos % (Auto) (0.8-7.0) Baso % (Auto) (0.1-1.2) % Neut # (Auto) (1.78-5.38) K/mm3 Lymph # (Auto) (1.32-3.57) K/mm3 [place] # (Auto) (0.30-0.82) K/mm3 Eos # (Auto) (0.04-0.54) K/mm3 Baso # (Auto) (0.01-0.08) K/mm3 Manual Slide Review PT (9.7-12.0) SECONDS INR APTT (21.7-31.4) SECONDS Sodium (136-145) mEq/L Potassium (3.5-5.1) mEq/L Chloride (98-107) mEq/L Carbon Dioxide (21-32) mEq/L Anion Gap (5-15) BUN (7-18) mg/dL Creatinine (0.7-1.3) mg/dL Est Cr Clr Drug Dosing mL/min Estimated GFR (MDRD) (>60) mL/min BUN/Creatinine Ratio (14-18) Glucose (80-115) mg/dL Calcium (8.5-10.1) mg/dL Magnesium (1.8-2.4) mg/dl Total Bilirubin (0.2-1.0) mg/dL AST (15-37) U/L ALT (16-63) U/L Alkaline Phosphatase (46-116) U/L C-Reactive Protein (<1.0) mg/dL NT-Pro-B Natriuret Pep 88 (0-125) pg/mL Total Protein (6.4-8.2) g/dl Albumin (3.4-5.0) g/dl Globulin gm/dL Albumin/Globulin Ratio (1-2) Urine Color Yellow (Yellow) Urine Appearance Clear (Clear) Urine pH 7.0 (5.0-8.0) Ur Specific [place] 1.025 (1.005-1.030) Urine Protein 1+ H (Negative) Urine Glucose (UA) Negative (Negative) Urine Ketones 1+ H (Negative) Urine Occult Blood Negative (Negative) Urine Nitrite Negative (Negative) Urine Bilirubin Negative (Negative) Urine Urobilinogen 0.2 (0.2-1.0) Ur Leukocyte Esterase Negative (Negative) Urine RBC 0-5 (0-5) /hpf Urine WBC 0-5 (0-5) /hpf Ur Squamous Epith Cells 0-5 (0-5) /hpf Urine Bacteria Few (FEW) /hpf Urine Mucus Few (FEW) /hpf Meds: Medications Generic Name Dose Route Start Last Admin Trade Name Estuardo PRN Reason Stop Dose Admin Sodium Chloride 1,000 mls @ 100 mls/hr 08/29/20 16:45 08/29/20 17:21 Normal Saline IV 100 mls/hr ASDIRECTED RAUL Administration Discontinued Medications Generic Name Dose Route Start Last Admin Trade Name Estuardo PRN Reason Stop Dose Admin Hydromorphone HCl 1 mg 08/29/20 17:33 08/29/20 17:40 Dilaudid IVPUSH 08/29/20 17:34 1 mg ONETIME ONE Administration Metoclopramide HCl 10 mg 08/29/20 19:14 08/29/20 19:22 Reglan IVPUSH 08/29/20 19:15 10 mg ONETIME ONE Administration Ondansetron HCl 4 mg 08/29/20 16:39 08/29/20 17:20 Zofran IVPUSH 08/29/20 16:40 4 mg ONETIME ONE Administration - Radiology Interpretation Free Text/Narrative:: 64-year-old male presents to the ED as a trauma alert. He states he was standing on a skid steer in the workplace and lost his balance and fell between 6 and 8 feet to the concrete floor headfirst. He does not think that he lost consciousness. He does believe it knocked the wind out of him. He is on Plavix because of coronary artery stents. He has an extremely large hematoma left occipital scalp. He vomited in route to the hospital in the ambulance and his c-collar was removed due to this. When he arrived in the ED he does not have c- collar in place but denies any significant cervical neck pain that is not there normally. When we sat him up he nearly passed out once again. He has some pain mid thoracic spine between his shoulder blades but no other injuries I could identify other than some superficial abrasions to the musculature posterior right thigh. Plan he will have CT of the head cervical spine and thoracic spine carried out. IV will be normal saline and 100 mils per hour. Given Zofran 4 mg IV for nausea relief. Routine labs to be collected including PTT and PT/INR. - Re-Assessments/Exams Free Text/Narrative Re-Assessment/Exam: 08/29/20 17:30: CT of the head reveals no skull fractures and no intracranial hemorrhage or mass-effect. There is mild small vessel ischemic changes in both basal ganglia. No skull fractures identified. Patient identifies that every time he turns to the right he gets severely vertiginous. I will wait for the [facility] rad report to make sure they do not see a basal skull fracture that I do not see. CT of his cervical spine reveals advanced degenerative arthritic change but no fractures. Similarly he has advanced degenerative arthritic change throughout his thoracic spine suggesting ankylosing spondylitis. It appears that he has old compression fractures in the lower thoracic spine as well. No new fractures are identified. Patient is complaining of a headache 10 out of 10. He will be given Dilaudid 1 mg IV for pain relief at this time 08/29/20 18:09 patient was requesting more analgesia. It appears that he has fallen asleep in his O2 sats slightly dropped when he fell asleep. He was placed on 2 L of oxygen at this time. CT scan over read by [facility] reveals CT of his head to show no evidence of acute hemorrhage within the brain parenchyma or the subarachnoid space. Ventricular system is normal in size and distribution. There is no significant ventricular effacement or midline shift. No fractures in the skull identified. There is fluid in the left maxillary sinus . There is a large scalp hematoma overlying the left frontal parietal bone. There is patchy opacity of some of the ethmoid air cells noted as well. Mastoid sinuses are normal. The orbits are normal CT of the cervical neck reveals the facet joints demonstrate moderate degenerative hypertrophy and sclerosis. The vertebral body heights are maintained. There is no evidence of an acute fracture. There is advanced degenerative change in both of his shoulder joints. There is mild narrowing of the C6-C7 intervertebral disc space. There is moderate narrowing of the left C6-C7 neural foramen due to hypertrophy of the uncus. There is no significant spinal canal narrowing. The extra spinous soft tissues are normal. Visualized portion of the lung apices are normal. CT of the thoracic spine reveals flowing anterior thoracic osteophytes throughout the mid and lower thoracic spine compatible with diffuse idiopathic skeletal hyperostosis. The T12 vertebral body is not entirely included on the study. The T12 vertebral body is moderately compressed and appears chronic. Patient reports that he did have a fracture in this area. The remainder of the thoracic vertebral body heights and alignment are preserved. No significant disc protrusion evident no severe spinal canal stenosis evident. No significant neuroforaminal narrowing identified lungs reveal mild bilateral dependent atelectasis. Heart shows moderate coronary artery calcification 08/29/20 19:16 patient is still suffering from vertigo. Nurses have sat him up at 45 degrees and if he remains still he is doing not too bad. I am going to give him Reglan 10 mg IV in the hopes of bringing his vertigo under some degree of control. I have prescriptions for Percocet tabs 5 /325 mg 1 or 2 every 4-6 hours necessary for pain relief with Reglan 10 mg 1 every 8 hours as needed for relief of nausea and vertigo symptoms. His boss is already total and then he is off work for the next 2 weeks. There are some concern that his paroxysmal vertigo symptoms may have caused him to have the fall today. 08/29/20 19:38: Patient feels ready to be discharged. He is fairly drowsy and he prefers not to look to the right as it causes vertigo symptoms to return. Was discharged home in the care of his . Note given to excuse him from work for at least 7 to 10 days. Departure - Departure Time of Disposition: 19:42 Disposition: Home, Self-Care 01 Condition: Fair Clinical Impression: Fall from mobile elevated work platform as cause of accidental injury Closed head injury without concussion Qualifiers: Encounter type: initial encounter Qualified Code(s): S09.90XA - Unspecified in jury of head, initial encounter Left parietal scalp hematoma Qualifiers: Encounter type: initial encounter Qualified Code(s): S00.03XA - Contusion of scalp, initial encounter Contusion of back wall of thorax Qualifiers: Encounter type: initial encounter Thoracic wall location detail: middle Qualified Code(s): S20.224A - Contusion of middle back wall of thorax, initial encounter Acute strain of neck muscle Qualifiers: Encounter type: initial encounter Qualified Code(s): S16.1XXA - Strain of muscle, fascia and tendon at neck level, initial encounter - Discharge Information *PRESCRIPTION DRUG MONITORING PROGRAM REVIEWED*: Not Applicable *COPY OF PRESCRIPTION DRUG MONITORING REPORT IN PATIENT ABBI: Not Applicable Prescriptions: oxyCODONE HCl/Acetaminophen [Percocet 5-325 mg Tablet] 1 - 2 each PO Q4H PRN #24 tablet PRN Reason: pain relief. Metoclopramide HCl [Reglan] 10 mg PO Q8H PRN #12 tablet PRN Reason: Severe vertigo Instructions: Cervical Sprain, Head Injury, Adult, [id number] Referrals: PCP,None [Primary Care Provider] - Forms: ED Department Discharge, ED Return to Work/School Form Additional Instructions: Evaluation in the emergency room today in regards to a fall in the workplace when you missed stepped while up on the skid steer. This caused you to fall to the ground falling backwards headfirst on concrete surface. You suffered a large scalp hematoma to the left parieto-occipital scalp. CT of the head and brain does not reveal any skull fractures or intracranial bleeding in spite of being on Plavix therapy. CT scans of your neck revealed advanced degenerative arthritic changes but no broken bones and similarly in the mid back where you are having pain between your shoulder blades advanced degenerative arthritic changes are evident with old compression fractures at T12 evident. No new fractures were identified. You identified that every time he turned to the right you experience vertigo symptoms. There is no doubt that the fall today certainly could have aggravated underlying vertigo problems. Discharge instructions to be Percocet tabs 5/325 mg strength 1 or 2 every 4-6 hours necessary for pain relief. Ice pack to the left scalp 1/2-hour out of every 4 hours today and tomorrow will reduce the swelling. Expect to be stiff and sore multiple other areas from the fall today. You will likely be bruised in other areas in your back and buttocks as well. There was some tenderness appreciated on the posterior aspect of your right leg and thigh which will likely be black and blue tomorrow as well. Reglan 10 mg tablet can be used for nausea relief and/or vertigo relief as needed. They cannot be taken any more frequently than every 8 hours due to potential side effects. Sepsis Event Note (ED) - Focused Exam Vital Signs: Vital Signs Temp Pulse Resp BP Pulse Ox 08/29/20 19:06 36.7 C 76 16 141/67 H 100 08/29/20 16:35 36.1 C 69 18 130/90 100 - My Orders Last 24 Hours: My Active Orders 08/29/20 16:34 Head wo Cont [CT] Stat 08/29/20 16:36 Cervical Spine wo Cont [CT] Stat 08/29/20 16:38 Thoracic Spine wo Cont [CT] Stat 08/29/20 16:40 EKG Documentation Completion [RC] STAT 08/29/20 16:45 Sodium Chloride 0.9% [Normal Saline] 1,000 ml IV ASDIRECTED 08/29/20 18:14 Oxygen Therapy [RC] ASDIRECTED - Assessment/Plan Last 24 Hours: My Active Orders 08/29/20 16:34 Head wo Cont [CT] Stat 08/29/20 16:36 Cervical Spine wo Cont [CT] Stat 08/29/20 16:38 Thoracic Spine wo Cont [CT] Stat 08/29/20 16:40 EKG Documentation Completion [RC] STAT 08/29/20 16:45 Sodium Chloride 0.9% [Normal Saline] 1,000 ml IV ASDIRECTED 08/29/20 18:14 Oxygen Therapy [RC] ASDIRECTED
[2020-08-29] MEDS ORDERED: Sodium Chloride 0.9% 1,000 ML IV SCH (16:45)
[2020-08-29] MEDS ORDERED: HYDROmorphone 1 MG/ML Syringe IVPUSH ONE (17:33)
[2020-08-29] MEDS ORDERED: Metoclopramide 10 MG/2 ML SDV IVPUSH ONE (19:14)
--- NOTE | 2020-09-03 08:51 | CT ---
PROCEDURE INFORMATION: Exam: CT Head Without Contrast Exam date and time: 08/29/2020 4:58 PM Age: 64 years old Clinical indication: Injury or trauma; Fall; Concussion/head injury; Additional info: Fell off skid steer about 6 feet to concrete floor. No report of loc, vomited en route to hospital. Large hematoma ln occipital scalp TECHNIQUE: Imaging protocol: Computed tomography of the head without contrast. Radiation optimization: All CT scans at this facility use at least one of these dose optimization techniques: automated exposure control; mA and/or kV adjustment per patient size (includes targeted exams where dose is matched to clinical indication); or iterative reconstruction. COMPARISON: No relevant prior studies available. FINDINGS: Brain: There is no evidence of acute hemorrhage within the brain parenchyma or the subarachnoid space. Cerebral ventricles: The ventricular system is normal in size and distribution. There is no significant ventricular effacement or midline shift. Bones/joints: The skull is normal. Paranasal sinuses: There is fluid in the left maxillary sinus. There is a large scalp hematoma over the left frontal parietal bone. There is patchy opacity of some of the lay ethmoid air cells. Mastoid air cells: The mastoid sinuses are normal. Orbital cavity: The orbits are normal. Soft tissues: See "Paranasal sinuses" finding. IMPRESSION: 1. Large left scalp hematoma. 2. Fluid in the left maxillary sinus suggest possible fracture of the facial bones but these are largely excluded from the imaged volume. Correlation with a CT of the facial bones might be considered. 3. No acute intracranial process is seen. Thank you for allowing us to participate in the care of your patient. Dictated and Authenticated by: Edison Odonnell MD 08/29/2020 6:47 PM Central Time ([place] & [place]) [facility]
--- NOTE | 2020-09-03 08:54 | CT ---
PROCEDURE INFORMATION: Exam: CT Cervical Spine Without Contrast Exam date and time: 08/29/2020 5:03 PM Age: 64 years old Clinical indication: Injury or trauma; Fall; Blunt trauma; Additional info: Fell off skid steer about 6 feet to concrete floor. No report of loc, vomited en route to hospital. Large hematoma ln occipital scalp TECHNIQUE: Imaging protocol: Computed tomography images of the cervical spine without contrast. Radiation optimization: All CT scans at this facility use at least one of these dose optimization techniques: automated exposure control; mA and/or kV adjustment per patient size (includes targeted exams where dose is matched to clinical indication); or iterative reconstruction. COMPARISON: No relevant prior studies available. FINDINGS: Bones/joints: The facet joints demonstrate moderate degenerative hypertrophy and sclerosis. The vertebral body heights are maintained. There is no evidence of acute fracture. There is advanced degenerative change in the both shoulder joints.. Discs/Spinal canal/Neural foramina: There is mild narrowing of the C6-C7 intervertebral disc. There is moderate narrowing of the left C6-C7 neural foramen due to hypertrophy of the uncus. There is no significant spinal canal narrowing. Soft tissues: The extraspinous soft tissues are normal. Lungs: The visualized portions of the lung apices are normal. IMPRESSION: Degenerative disc and facet disease without acute bony abnormality. Thank you for allowing us to participate in the care of your patient. Dictated and Authenticated by: Edison Odonnell MD 08/29/2020 6:50 PM Central Time ([place] & [place]) [place]
--- NOTE | 2020-09-03 08:56 | CT ---
PROCEDURE INFORMATION: Exam: CT Thoracic Spine Without Contrast Exam date and time: 08/29/2020 5:09 PM Age: 64 years old Clinical indication: Injury or trauma; Fall; Blunt trauma (contusions or hematomas); Additional info: Fell off skid steer about 6 feet to concrete floor. No report of loc, vomited en route to hospital. Large hematoma ln occipital scalp TECHNIQUE: Imaging protocol: Computed tomography images of the thoracic spine without contrast. Radiation optimization: All CT scans at this facility use at least one of these dose optimization techniques: automated exposure control; mA and/or kV adjustment per patient size (includes targeted exams where dose is matched to clinical indication); or iterative reconstruction. COMPARISON: No relevant prior studies available. FINDINGS: Vertebrae: Flowing anterior thoracic osteophytes throughout the mid and lower thoracic spine compatible with diffuse idiopathic skeletal hyperostosis. The T12 vertebral body is not entirely included on this study. The T12 vertebral body is moderately compressed probably chronic. The remainder of the thoracic vertebral body heights and alignment preserved. Discs/Spinal canal/Neural foramina: No significant disc protrusion. No severe spinal canal stenosis. No significant neural foraminal narrowing. Soft tissues: Unremarkable. Lungs: Bilateral dependent atelectasis. Heart: Moderate coronary artery calcification. IMPRESSION: 1. Moderate compression deformity of T12 probably old although the entire T12 vertebral body is not included on this examination. If the pain is referred to the lower thoracic spine, T12 area, suggest additional imaging to include the entire T12 vertebral body as well as thoracolumbar junction. 2. No definite evidence for acute injury of the thoracic spine. Findings compatible with diffuse idiopathic skeletal hyperostosis. Thank you for allowing us to participate in the care of your patient. Dictated and Authenticated by: Americo Nair MD 08/29/2020 6:58 PM Central Time ([place] & [place]) [place]
== END 2020-08-29 19:43 | disposition home or self-care (01) ==
LOC: JD.ED 16:27
DX: S16.1XXA Strain of muscle, fascia and tendon at neck level, initial encounter (principal); S20.224A Contusion of middle back wall of thorax, initial encounter; S00.03XA Contusion of scalp, initial encounter; S09.90XA Unspecified injury of head, initial encounter; I25.10 Atherosclerotic heart disease of native coronary artery without angina pectoris; E78.00 Pure hypercholesterolemia, unspecified; I25.2 Old myocardial infarction; M19.90 Unspecified osteoarthritis, unspecified site; Z79.82 Long term (current) use of aspirin; Z79.02 Long term (current) use of antithrombotics/antiplatelets; Z79.899 Other long term (current) drug therapy; Z95.5 Presence of coronary angioplasty implant and graft; W01.0XXA Fall on same level from slipping, tripping and stumbling without subsequent striking against object, initial encounter; Y99.0 Civilian activity done for income or pay
CPT/HCPCS: 36415; 70450; 72125; 72128; 80053; 81001; 83735; 83880; 85025; 85610; 85730; 86140; 93005; 96374; 96375; 99284; J1170; J2405; J2765; J7030; 93010

== ENCOUNTER 2022-11-29 22:43 | Emergency (ER) | payer MEDICARE, OTHER ==
[2022-11-29] MEDS ORDERED: HYDROmorphone 0.5 MG/0.5 ML Syringe IVPUSH ONE (23:03)
[2022-11-29] MEDS ORDERED: Metoclopramide 10 MG/2 ML SDV IVPUSH ONE (23:04)
[2022-11-29] MEDS ORDERED: Dexamethasone 4 MG/ML SDV IVPUSH ONE (23:04)
[2022-11-29] MEDS ORDERED: Dextrose 5%-Lactated Ringers 1,000 ML IV SCH (23:15)
[2022-11-30] MEDS ORDERED: cefTRIAXone 2 GM in Sodium Chloride 0.9% 100 ML IV ONE (00:30)
== END 2022-11-30 01:34 | disposition home or self-care (01) ==
LOC: JD.ED 22:43
DX: J18.9 Pneumonia, unspecified organism (principal); J01.00 Acute maxillary sinusitis, unspecified; I25.10 Atherosclerotic heart disease of native coronary artery without angina pectoris; E78.00 Pure hypercholesterolemia, unspecified; I25.2 Old myocardial infarction; M19.90 Unspecified osteoarthritis, unspecified site; Z79.82 Long term (current) use of aspirin; Z79.02 Long term (current) use of antithrombotics/antiplatelets; Z79.899 Other long term (current) drug therapy
CPT/HCPCS: 36415; 71045; 80053; 83735; 83880; 85025; 86140; 87651; 96361; 96365; 96375; 99284; J0696; J1100; J1170; J2765; J7121

== ENCOUNTER 2023-07-16 01:12 | Emergency (ER) | payer MEDICARE, OTHER ==
[2023-07-16] MEDS ORDERED: Ondansetron 4 MG/2 ML SDV IVPUSH ONE (01:24)
[2023-07-16] MEDS ORDERED: Lactated Ringers 1,000 ML IV ONE (01:25)
[2023-07-16 02:16] LABS: BASOPHILS PERCENT AUTO 0.4 % (0.0-1.0); EOSINOPHILS ABSOLUTE AUTO 0.2 K/mm3 (0.0-0.4); HEMATOCRIT 46.7 % (42.0-52.0); HEMOGLOBIN 15.8 gm/dl (14.0-18.0); IMMATURE GRAN ABSOLUTE AUTO 0.02 K/mm3 (0.00-0.05); IMMATURE GRAN PERCENT AUTO 0.2 % (0.0-0.4); LYMPHOCYTES ABSOLUTE AUTO 0.4 K/mm3 (1.0-4.8); MEAN CORPUSCULAR HEMOGLOBIN 30.6 pg (28.0-32.0); MEAN CORPUSCULAR HGB CONC 33.8 g/dl (32.0-36.0); MEAN CORPUSCULAR VOLUME 90.5 fl (83.0-99.0); MEAN PLATELET VOLUME 9.9 fl (9.4-12.4); MONOCYTES ABSOLUTE AUTO 0.8 K/mm3 (0.0-0.8); MONOCYTES PERCENT AUTO 7.2 % (0.0-8.0); NEUTROPHILS ABSOLUTE AUTO 9.3 K/mm3 (1.8-7.7); NEUTROPHILS PERCENT AUTO 86.2 % (41.0-71.0); PLATELET COUNT,PLT 232 K/mm3 (150-400); RED BLOOD CELL COUNT 5.16 M/mm3 (4.52-5.90); WHITE BLOOD CELL COUNT,WBC 10.76 K/mm3 (3.9-11.3)
[2023-07-16 02:32] LABS: A/G RATIO 1.4 (1-2); ALBUMIN 4.2 g/dl (3.4-5.0); ANION GAP 16.2 (5-15); BUN/CREATININE RATIO 17.5 (14-18); CALCIUM 8.9 mg/dL (8.5-10.1); CREATININE 1.2 mg/dL (0.7-1.3); EST CRCL DRUG DOSING (CG) 60.83 mL/min; POTASSIUM,K 4.2 mEq/L (3.5-5.1); PROTEIN TOTAL,TP 7.2 g/dl (6.4-8.2)
[2023-07-16] MEDS ORDERED: Sodium Chloride 0.9% 1,000 ML IV ONE (03:13)
== END 2023-07-16 05:16 | disposition home or self-care (01) ==
LOC: JD.ED 01:12
DX: K52.9 Noninfective gastroenteritis and colitis, unspecified (principal); I25.10 Atherosclerotic heart disease of native coronary artery without angina pectoris; E78.00 Pure hypercholesterolemia, unspecified; I25.2 Old myocardial infarction; Z79.82 Long term (current) use of aspirin; Z79.899 Other long term (current) drug therapy
CPT/HCPCS: 36415; 80053; 83690; 85025; 96361; 96374; 99284; J2405; J7030; J7120

== ENCOUNTER 2024-10-14 11:56 | Emergency (ER) | payer MEDICARE, OTHER ==
[2024-10-14 12:26] LABS: BASOPHILS PERCENT AUTO 0.3 % (0.0-1.0); EOSINOPHILS PERCENT AUTO 0.3 % (0.0-6.0); HEMATOCRIT 40.4 % (42.0-52.0); HEMOGLOBIN 13.8 gm/dl (14.0-18.0); IMMATURE GRAN ABSOLUTE AUTO 0.02 K/mm3 (0.00-0.05); IMMATURE GRAN PERCENT AUTO 0.3 % (0.0-0.4); LYMPHOCYTES ABSOLUTE AUTO 0.2 K/mm3 (1.0-4.8); LYMPHOCYTES PERCENT AUTO 3.3 % (24.0-44.0); MEAN CORPUSCULAR HEMOGLOBIN 30.3 pg (28.0-32.0); MEAN CORPUSCULAR HGB CONC 34.2 g/dl (32.0-36.0); MEAN CORPUSCULAR VOLUME 88.8 fl (83.0-99.0); MEAN PLATELET VOLUME 9.8 fl (9.4-12.4); MONOCYTES ABSOLUTE AUTO 0.2 K/mm3 (0.0-0.8); NEUTROPHILS ABSOLUTE AUTO 6.9 K/mm3 (1.8-7.7); NEUTROPHILS PERCENT AUTO 93.8 % (41.0-71.0); PLATELET COUNT,PLT 169 K/mm3 (150-400); RED BLOOD CELL COUNT 4.55 M/mm3 (4.52-5.90); WHITE BLOOD CELL COUNT,WBC 7.33 K/mm3 (3.9-11.3)
[2024-10-14 12:52] LABS: INR 1.08; PROTHROMBIN TIME 11.4 SECONDS (9.7-12.0)
[2024-10-14] MEDS: Sodium Chloride 0.9% 1,000 ML IV ONE (13:00)
[2024-10-14] MEDS: Ondansetron 4 MG/2 ML SDV IVPUSH ONE (13:01)
[2024-10-14 13:03] LABS: A/G RATIO 1.3 (1-2); ALANINE AMINOTRANSFERASE,ALT 32 U/L (16-63); ALBUMIN 3.6 g/dl (3.4-5.0); ALKALINE PHOSPHATASE 107 U/L (46-116); ANION GAP 17.5 (5-15); ASPARTATE AMNIOTRANSFERASE,AST 24 U/L (15-37); BILIRUBIN TOTAL 2.8 mg/dL (0.2-1.0); BLOOD UREA NITROGEN,BUN 13 mg/dL (7-18); BUN/CREATININE RATIO 11.8 (14-18); CALCIUM 8.4 mg/dL (8.5-10.1); CARBON DIOXIDE,CO2 23 mEq/L (21-32); CHLORIDE,CL 102 mEq/L (98-107); CREATINE KINASE,CK 186 U/L (39-308); CREATININE 1.1 mg/dL (0.7-1.3); ESTIMATED GFR 73 mL/min (>60); GLUCOSE RANDOM 112 mg/dL (70-99); LIPASE 28 U/L (16-77); MAGNESIUM 1.3 mg/dL (1.8-2.4); POTASSIUM,K 3.5 mEq/L (3.5-5.1); PROTEIN TOTAL,TP 6.3 g/dl (6.4-8.2); SODIUM,NA 139 mEq/L (136-145); TROPONIN I HIGH SENSITIVITY 5 pg/mL (<=76)
[2024-10-14 13:21] LABS: APPEARANCE,URINE CLEAR (Clear); BILIRUBIN,URINE NEGATIVE (Negative); COLOR,URINE YELLOW (Yellow); GLUCOSE,URINE NEGATIVE (Negative); KETONES,URINE NEGATIVE (Negative); LEUKOCYTE ESTERASE,URINE 3+ (Negative); NITRITE,URINE POSITIVE (Negative); OCCULT BLOOD,URINE 2+ (Negative); PH,URINE 6.5 (5.0-8.0); PROTEIN,URINE 1+ (Negative)
[2024-10-14] MEDS ORDERED: Magnesium Sulfate/Water Premix 2 GM/50 ML BAG IV SCH (13:45)
[2024-10-14] MEDS: Magnesium Sulfate/Water Premix 50 ML IV ONE (14:10)
[2024-10-14 14:11] LABS: BACTERIA,URINE FEW /hpf (FEW); EPITHELIAL CELLS,URINE 0-5 /hpf (0-5); MUCUS,URINE FEW /hpf (FEW); RBC,URINE 0-5 /hpf (0-5); WBC,URINE 30-40 /hpf (0-5)
== END 2024-10-14 17:49 | disposition home or self-care (01) ==
LOC: JD.ED 11:56
DX: E86.9 Volume depletion, unspecified (principal); E83.42 Hypomagnesemia; R29.6 Repeated falls; I25.10 Atherosclerotic heart disease of native coronary artery without angina pectoris; I25.2 Old myocardial infarction; M19.90 Unspecified osteoarthritis, unspecified site; E78.00 Pure hypercholesterolemia, unspecified; Z90.89 Acquired absence of other organs; Z95.5 Presence of coronary angioplasty implant and graft; Z79.82 Long term (current) use of aspirin; Z79.899 Other long term (current) drug therapy
CPT/HCPCS: 36415; 70450; 71045; 80053; 81001; 82550; 83690; 83735; 83880; 84484; 85025; 85610; 87428; 93005; 96361; 96365; 96366; 96375; 99285; J2405; J3475; J7030; 99284

== ENCOUNTER 2024-10-17 16:53 | Emergency (ER) | payer MEDICARE, OTHER ==
[2024-10-17] MEDS ORDERED: Lidocaine 1% with EPINEPHrine 1:100,000 10 ML MDV INJECT ONE (18:22)
[2024-10-17] MEDS: Cefdinir 300 MG Cap PO ONE (18:50)
[2024-10-17] MEDS: Lidocaine 1% with EPINEPHrine 1:100,000 20 ML MDV INJECT ONE (19:04)
== END 2024-10-17 19:00 | disposition home or self-care (01) ==
LOC: JD.ED 16:53
DX: M54.81 Occipital neuralgia (principal); N39.0 Urinary tract infection, site not specified; I25.10 Atherosclerotic heart disease of native coronary artery without angina pectoris; I25.2 Old myocardial infarction; E78.00 Pure hypercholesterolemia, unspecified; M19.90 Unspecified osteoarthritis, unspecified site; Z90.89 Acquired absence of other organs; Z79.82 Long term (current) use of aspirin; Z79.899 Other long term (current) drug therapy; R35.0 Frequency of micturition; R30.0 Dysuria; E83.42 Hypomagnesemia
CPT/HCPCS: 36415; 80053; 81001; 83735; 85025; 87086; 87088; 87186; 99213; 99283; A9270; J3490

== ENCOUNTER 2024-10-22 08:33 | Emergency (ER) | payer MEDICARE, OTHER ==
[2024-10-22 10:16] LABS: APPEARANCE,URINE CLEAR (Clear); BILIRUBIN,URINE NEGATIVE (Negative); COLOR,URINE YELLOW (Yellow); GLUCOSE,URINE NEGATIVE (Negative); KETONES,URINE NEGATIVE (Negative); LEUKOCYTE ESTERASE,URINE NEGATIVE (Negative); NITRITE,URINE NEGATIVE (Negative); OCCULT BLOOD,URINE TRACE-INTACT (Negative); PROTEIN,URINE NEGATIVE (Negative); UROBILINOGEN,URINE 0.2 (0.2-1.0)
[2024-10-22] MEDS: Lidocaine 2% 11 ML Jelly Filled Syringe MUCMEM STA (10:20)
[2024-10-22 10:39] LABS: RBC,URINE 0-5 /hpf (0-5); WBC,URINE 0-5 /hpf (0-5)
[2024-10-22 10:40] LABS: BACTERIA,URINE FEW /hpf (FEW); MUCUS,URINE MODERATE /hpf (FEW); SQUAMOUS EPITHELIAL CELLS,UR 0-5 /hpf (0-5)
== END 2024-10-22 12:30 | disposition home or self-care (01) ==
LOC: JD.ED 08:33
DX: E86.0 Dehydration (principal); E78.00 Pure hypercholesterolemia, unspecified; I25.10 Atherosclerotic heart disease of native coronary artery without angina pectoris; I25.2 Old myocardial infarction; Z95.5 Presence of coronary angioplasty implant and graft; Z79.82 Long term (current) use of aspirin; Z79.899 Other long term (current) drug therapy
CPT/HCPCS: 51798; 81001; 99283; A9270; C1758

== ENCOUNTER 2025-04-06 11:20 | Emergency (ER) | payer MEDICARE, OTHER ==
[2025-04-06] MEDS ORDERED: Sodium Chloride 0.9% 10 ML Syringe FLUSH PRN (12:55)
[2025-04-06 13:46] LABS: BASOPHILS ABSOLUTE AUTO 0.0 K/mm3 (0.0-0.2); BASOPHILS PERCENT AUTO 0.7 % (0.0-1.0); EOSINOPHILS ABSOLUTE AUTO 0.2 K/mm3 (0.0-0.4); EOSINOPHILS PERCENT AUTO 5.8 % (0.0-6.0); IMMATURE GRAN ABSOLUTE AUTO 0.02 K/mm3 (0.00-0.05); IMMATURE GRAN PERCENT AUTO 0.5 % (0.0-0.4); LYMPHOCYTES ABSOLUTE AUTO 0.6 K/mm3 (1.0-4.8); LYMPHOCYTES PERCENT AUTO 15.4 % (24.0-44.0); MEAN PLATELET VOLUME 9.3 fl (9.4-12.4); MONOCYTES ABSOLUTE AUTO 0.4 K/mm3 (0.0-0.8); MONOCYTES PERCENT AUTO 10.3 % (0.0-8.0); NEUTROPHILS ABSOLUTE AUTO 2.8 K/mm3 (1.8-7.7); NEUTROPHILS PERCENT AUTO 67.3 % (41.0-71.0); NRBC ABSOLUTE 0.00 (0.00-0.02); NRBC PERCENT 0.0 % (0.0-0.2); PLATELET COUNT,PLT 190 K/mm3 (150-400); RED BLOOD CELL COUNT 4.75 M/mm3 (4.52-5.90); WHITE BLOOD CELL COUNT,WBC 4.16 K/mm3 (3.9-11.3)
[2025-04-06 14:06] LABS: LACTIC ACID 0.8 mmol/L (0.4-2.0)
[2025-04-06 14:10] LABS: A/G RATIO 1.3 (1-2); ALANINE AMINOTRANSFERASE,ALT 224.0 U/L (16-63); ASPARTATE AMNIOTRANSFERASE,AST 105.0 U/L (15-37); BILIRUBIN TOTAL 1.4 mg/dL (0.2-1.0); BLOOD UREA NITROGEN,BUN 14.0 mg/dL (7-18); CARBON DIOXIDE,CO2 28.0 mEq/L (21-32); CHLORIDE,CL 102.0 mEq/L (98-107); CREATININE 1.1 mg/dL (0.7-1.3); EST CRCL DRUG DOSING (CG) 64.52 mL/min; ESTIMATED GFR 72.0 mL/min (>60); GLUCOSE RANDOM 103.0 mg/dL (70-99); POTASSIUM,K 5.4 mEq/L (3.5-5.1); PROTEIN TOTAL,TP 6.6 g/dl (6.4-8.2); SODIUM,NA 136.0 mEq/L (136-145)
[2025-04-06] MEDS: Iopamidol 612 MG/ML 100 ML Bottle IVPUSH ONE (15:00)
[2025-04-06] MEDS: Sodium Chloride 0.9% 10 ML Syringe FLUSH ONE (15:00)
== END 2025-04-06 16:20 | disposition home or self-care (01) ==
LOC: JD.ED 11:20
DX: R19.7 Diarrhea, unspecified (principal); I25.10 Atherosclerotic heart disease of native coronary artery without angina pectoris; E78.00 Pure hypercholesterolemia, unspecified; Z79.899 Other long term (current) drug therapy; Z79.82 Long term (current) use of aspirin; Z86.16 Personal history of COVID-19
CPT/HCPCS: 36415; 74177; 80053; 83605; 83735; 83880; 85025; 99284; Q9967